=== PATIENT | male | born 1960 | race Caucasian/White ===

== ENCOUNTER 2018-10-21 04:59 | Inpatient (IN) | payer OTHER ==
[2018-10-21 05:54] LABS: ADD MAN DIFF? NO
[2018-10-21 06:05] LABS: WHITE BLOOD COUNT 6.2 10^3/ul (4.8-10.8)
[2018-10-21 06:05] LABS: ABNORMAL IP MESSAGE 1; BASOPHILS % 0.3 % (0.0-2.0); EOSINOPHILS # 0.2 10^3/ul (0.0-0.5); EOSINOPHILS % 2.4 % (0.0-7.0); HEMATOCRIT 27.6 % (42.0-52.0); HEMOGLOBIN 9.5 g/dl (14.0-18.0); LYMPHOCYTES # 2.6 10^3/ul (0.8-2.9); LYMPHOCYTES % 41.2 % (15.0-51.0); MEAN CORPUSCULAR HEMOGLOBIN 28.8 pg (29.0-33.0); MEAN CORPUSCULAR HGB CONC 34.4 g/dl (32.0-37.0); MEAN CORPUSCULAR VOLUME 83.6 fl (82.0-101.0); MEAN PLATELET VOLUME 9.8 fl (7.4-10.4); MONOCYTE # 0.7 10^3/ul (0.3-0.9); MONOCYTES % 11.1 % (0.0-11.0); NEUTROPHIL # 2.6 10^3/ul (1.6-7.5); NEUTROPHILS % 42.4 % (39.0-77.0); PLATELET COUNT 147 10^3/UL (140-415); POSITIVE DIFF @See below; RED CELL DISTRIBUTION WIDTH 14.3 % (11.5-14.5)
[2018-10-21 06:25] LABS: ALANINE AMINOTRANSFERASE 21 IU/L (13-69); ALBUMIN 2.4 g/dl (3.3-4.9); ALBUMIN/GLOBULIN RATIO 0.96; ALKALINE PHOSPHATASE 80 IU/L (42-121); ANION GAP 10 (5-13); ASPARTATE AMINO TRANSFERASE 24 IU/L (15-46); BILIRUBIN,INDIRECT 0.5 mg/dl (0-1.1); BILIRUBIN,TOTAL 0.5 mg/dl (0.2-1.3); BLOOD UREA NITROGEN 17 mg/dl (7-20); CALCIUM 7.8 mg/dl (8.4-10.2); CARBON DIOXIDE 21 mmol/L (21-31); CHLORIDE 107 mmol/L (97-110); CREATININE 0.75 mg/dl (0.61-1.24); Estimated GFR > 60 mL/min (>60); GLUCOSE 82 mg/dl (70-220); LIPASE 29 U/L (23-300); POTASSIUM 3.8 mmol/L (3.5-5.1); SODIUM 138 mmol/L (135-144); TOTAL PROTEIN 4.9 g/dl (6.1-8.1)
[2018-10-21 06:35] LABS: TROPONIN-I < 0.012 ng/ml (0.000-0.120)
[2018-10-21] MEDS: ONDANSETRON 4 MG INJ IV ×2 (09:37→15:07)
[2018-10-21] MEDS: morphine 2 MG INJ IV ×2 (09:37→20:17)
[2018-10-21 09:45] LABS: ADD UMIC YES; UR ASCORBIC ACID NEGATIVE (NEGATIVE); UR BILIRUBIN (Dip) NEGATIVE (NEGATIVE); UR BLOOD (Dip) NEGATIVE (NEGATIVE); UR CLARITY CLEAR (CLEAR); UR COLOR YELLOW (YELLOW); UR GLUCOSE (Dip) NEGATIVE (NEGATIVE); UR KETONES (Dip) 2+ mg/dL (NEGATIVE); UR LEUKOCYTE ESTERASE (Dip) NEGATIVE Leu/ul (NEGATIVE); UR MUCUS FEW /HPF (NONE SEEN); UR NITRITE (Dip) NEGATIVE (NEGATIVE); UR RBC 0 /HPF (0-5); UR SPECIFIC GRAVITY (Dip) 1.018 (1.003-1.030); UR TOTAL PROTEIN (Dip) 2+ mg/dl (NEGATIVE); UR UROBILINOGEN (Dip) NEGATIVE (NEGATIVE); UR WBC 1 /HPF (0-5)
[2018-10-21] MEDS: DEXTROSE 5%-0.45% NACL 1,000 ML IV ×2 (10:54→23:52)
[2018-10-21] MEDS: PANTOPRAZOLE 40 MG INJ IV (10:54)
[2018-10-21] MEDS ORDERED: NACL 0.9% 3 ML SYG IV (11:00)
[2018-10-21] MEDS ORDERED: HYDROCODONE/APAP (5/325) TAB PO (11:00)
[2018-10-21] MEDS ORDERED: ACETAMINOPHEN 325 MG TAB PO ×2 (11:00)
[2018-10-21] MEDS ORDERED: ONDANSETRON 4 MG INJ IV (11:00)
[2018-10-21] MEDS: SUCRALFATE (100 MG/ML) 10ML CUP PO ×3 (12:35→20:17)
[2018-10-21] MEDS: METOCLOPRAMIDE 10 MG INJ IV ×3 (12:35→23:11)
[2018-10-22] MEDS: morphine 2 MG INJ IV ×2 (00:50→06:53)
[2018-10-22] MEDS: DEXTROSE 5%-0.45% NACL 1,000 ML IV ×2 (01:52→17:36)
[2018-10-22] MEDS: HYDROmorphONE 1 MG/ML SYG IV ×4 (02:47→23:31)
[2018-10-22] MEDS: METOCLOPRAMIDE 10 MG INJ IV ×4 (05:34→23:31)
[2018-10-22] MEDS: PANTOPRAZOLE 40 MG INJ IV (05:34)
[2018-10-22 06:10] LABS: ABNORMAL IP MESSAGE 1; HEMATOCRIT 29.2 % (42.0-52.0); HEMOGLOBIN 10.1 g/dl (14.0-18.0); MEAN CORPUSCULAR HEMOGLOBIN 28.5 pg (29.0-33.0); MEAN CORPUSCULAR HGB CONC 34.6 g/dl (32.0-37.0); MEAN CORPUSCULAR VOLUME 82.5 fl (82.0-101.0); MEAN PLATELET VOLUME 10.1 fl (7.4-10.4); PLATELET COUNT 202 10^3/UL (140-415); POSITIVE DIFF @See below; RED BLOOD COUNT 3.54 10^6/ul (4.70-6.10); RED CELL DISTRIBUTION WIDTH 14.4 % (11.5-14.5)
[2018-10-22 06:10] LABS: WHITE BLOOD COUNT 8.8 10^3/ul (4.8-10.8)
[2018-10-22 06:30] LABS: ADD MAN DIFF? YES
[2018-10-22 06:40] LABS: ALANINE AMINOTRANSFERASE 19 IU/L (13-69); ALBUMIN 2.6 g/dl (3.3-4.9); ALBUMIN/GLOBULIN RATIO 0.96; ALKALINE PHOSPHATASE 81 IU/L (42-121); ANION GAP 9 (5-13); ASPARTATE AMINO TRANSFERASE 25 IU/L (15-46); BILIRUBIN,INDIRECT 0.5 mg/dl (0-1.1); BILIRUBIN,TOTAL 0.5 mg/dl (0.2-1.3); BLOOD UREA NITROGEN 8 mg/dl (7-20); CALCIUM 7.8 mg/dl (8.4-10.2); CARBON DIOXIDE 24 mmol/L (21-31); CHLORIDE 103 mmol/L (97-110); CHOL/HDL RATIO 9.5 RATIO; CHOLESTEROL 181 mg/dl (100-200); CREATININE 0.54 mg/dl (0.61-1.24); Estimated GFR > 60 mL/min (>60); GLUCOSE 113 mg/dl (70-220); HDL CHOLESTEROL 19 mg/dl (30-78); LDL CHOLESTEROL,CALCULATED 132 mg/dl; MAGNESIUM 1.8 mg/dl (1.7-2.5); POTASSIUM 3.4 mmol/L (3.5-5.1); SODIUM 136 mmol/L (135-144); TOTAL PROTEIN 5.3 g/dl (6.1-8.1); TRIGLYCERIDES 149 mg/dl (0-149)
[2018-10-22 07:02] LABS: HEMOGLOBIN A1C 5.2 % (0-5.9)
[2018-10-22 07:45] LABS: ANISOCYTOSIS 1+ (0-0); BAND NEUTROPHILS #M 0.6 10^3/ul (0.0-0.6); BAND NEUTROPHILS % (M) 7 % (0-4); EOSINOPHILS % (M) 2 % (0-7); LYMPHOCYTES #M 1.8 10^3/ul (0.8-2.9); LYMPHOCYTES % (M) 21 % (15-51); METAMYELOCYTES %M 1 % (0-0); MONOCYTE #M 0.3 10^3/ul (0.3-0.9); MONOCYTES % (M) 4 % (0-11); MYELOCYTES #M 0.1 10^3/ul (0.0-0.0); MYELOCYTES % (M) 2 % (0-0); PLATELET ESTIMATE NORMAL; POIKILOCYTOSIS 1+ (0-0); REACTIVE LYMPHOCYTES #M 1.5 10^3/ul (0.0-0.0); REACTIVE LYMPHOCYTES% (M) 18 % (0-0); SEGMENTED NEUTROPHILS (M) % 45 % (39-77); SMUDGE%M 15 % (0-0)
[2018-10-22] MEDS: SUCRALFATE (100 MG/ML) 10ML CUP PO ×4 (08:49→20:23)
[2018-10-22] MEDS: ONDANSETRON 4 MG INJ IV (08:57)
[2018-10-22] MEDS: ENOXAPARIN 60 MG/0.6 ML SYG SC ×2 (09:30→20:18)
[2018-10-22] MEDS: POTASSIUM CHLORIDE 100 ML IVPB ×2 (11:28→14:22)
[2018-10-22] MEDS: DEXAMETHASONE 4 MG/ML 1 ML INJ IV ×3 (11:28→23:31)
[2018-10-22] MEDS: DOCUSATE SODIUM 100 MG CAP PO (20:17)
[2018-10-23] MEDS: HYDROmorphONE 1 MG/ML SYG IV ×5 (04:21→23:46)
[2018-10-23] MEDS: ONDANSETRON 4 MG INJ IV ×3 (04:21→21:10)
[2018-10-23] MEDS: METOCLOPRAMIDE 10 MG INJ IV ×4 (05:21→23:46)
[2018-10-23] MEDS: PANTOPRAZOLE 40 MG INJ IV (05:21)
[2018-10-23] MEDS: DEXAMETHASONE 4 MG/ML 1 ML INJ IV ×4 (05:21→23:47)
[2018-10-23 06:17] LABS: WHITE BLOOD COUNT 11.5 10^3/ul (4.8-10.8)
[2018-10-23 06:17] LABS: ABNORMAL IP MESSAGE 1; HEMOGLOBIN 10.8 g/dl (14.0-18.0); MEAN CORPUSCULAR HEMOGLOBIN 28.7 pg (29.0-33.0); MEAN CORPUSCULAR HGB CONC 34.8 g/dl (32.0-37.0); MEAN CORPUSCULAR VOLUME 82.4 fl (82.0-101.0); MEAN PLATELET VOLUME 9.6 fl (7.4-10.4); PLATELET COUNT 240 10^3/UL (140-415); POSITIVE DIFF @See below; RED BLOOD COUNT 3.76 10^6/ul (4.70-6.10); RED CELL DISTRIBUTION WIDTH 14.5 % (11.5-14.5)
[2018-10-23 06:24] LABS: ADD MAN DIFF? YES
[2018-10-23 06:46] LABS: ANION GAP 9 (5-13); BLOOD UREA NITROGEN 7 mg/dl (7-20); CALCIUM 7.9 mg/dl (8.4-10.2); CARBON DIOXIDE 22 mmol/L (21-31); CHLORIDE 103 mmol/L (97-110); CREATININE 0.64 mg/dl (0.61-1.24); Estimated GFR > 60 mL/min (>60); GLUCOSE 200 mg/dl (70-220); MAGNESIUM 1.7 mg/dl (1.7-2.5); POTASSIUM 3.9 mmol/L (3.5-5.1); SODIUM 134 mmol/L (135-144)
[2018-10-23] MEDS: DEXTROSE 5%-0.45% NACL 1,000 ML IV ×2 (06:47→21:08)
[2018-10-23 07:20] LABS: PHOSPHORUS 3.4 mg/dl (2.5-4.9)
[2018-10-23] MEDS: ENOXAPARIN 60 MG/0.6 ML SYG SC ×2 (08:07→21:12)
[2018-10-23 09:00] LABS: BAND NEUTROPHILS #M 0.8 10^3/ul (0.0-0.6); BAND NEUTROPHILS % (M) 7 % (0-4); LYMPHOCYTES # 1.6 10^3/ul (0.8-2.9); LYMPHOCYTES #M 1.6 10^3/ul (0.8-2.9); LYMPHOCYTES % (M) 14 % (15-51); METAMYELOCYTES #M 0.5 10^3/ul (0.0-0.0); METAMYELOCYTES %M 5 % (0-0); MONOCYTE # 0.8 10^3/ul (0.3-0.9); MONOCYTE #M 0.8 10^3/ul (0.3-0.9); MONOCYTES % (M) 7 % (0-11); REACTIVE LYMPHOCYTES #M 0.8 10^3/ul (0.0-0.0); REACTIVE LYMPHOCYTES% (M) 7 % (0-0); SEGMENTED NEUTROPHILS (M) % 60 % (39-77)
[2018-10-23] MEDS: SUCRALFATE (100 MG/ML) 10ML CUP PO ×4 (09:00→21:10)
[2018-10-23] MEDS: DOCUSATE SODIUM 100 MG CAP PO ×2 (09:00→21:10)
[2018-10-23 17:39] LABS: ADD UMIC YES; UR ASCORBIC ACID NEGATIVE (NEGATIVE); UR BACTERIA FEW /HPF (NONE SEEN); UR BILIRUBIN (Dip) NEGATIVE (NEGATIVE); UR BLOOD (Dip) NEGATIVE (NEGATIVE); UR CLARITY CLEAR (CLEAR); UR COLOR YELLOW (YELLOW); UR GLUCOSE (Dip) NEGATIVE (NEGATIVE); UR KETONES (Dip) 1+ mg/dL (NEGATIVE); UR LEUKOCYTE ESTERASE (Dip) NEGATIVE Leu/ul (NEGATIVE); UR MUCUS FEW /HPF (NONE SEEN); UR NITRITE (Dip) NEGATIVE (NEGATIVE); UR RBC 0 /HPF (0-5); UR SPECIFIC GRAVITY (Dip) 1.016 (1.003-1.030); UR TOTAL PROTEIN (Dip) 2+ mg/dl (NEGATIVE); UR UROBILINOGEN (Dip) NEGATIVE (NEGATIVE); UR WBC 2 /HPF (0-5)
[2018-10-23] MEDS ORDERED: PANTOPRAZOLE 40 MG INJ IV (18:00)
[2018-10-23] MEDS: FAMOTIDINE 20 MG INJ IV (21:10)
[2018-10-24] MEDS: HYDROmorphONE 1 MG/ML SYG IV ×5 (04:01→22:16)
[2018-10-24] MEDS: ONDANSETRON 4 MG INJ IV ×2 (04:06→12:34)
[2018-10-24] MEDS: METOCLOPRAMIDE 10 MG INJ IV ×3 (05:50→17:51)
[2018-10-24] MEDS: DEXAMETHASONE 4 MG/ML 1 ML INJ IV ×3 (05:50→17:51)
[2018-10-24 07:20] LABS: ABNORMAL IP MESSAGE 1; HEMATOCRIT 34.5 % (42.0-52.0); HEMOGLOBIN 11.9 g/dl (14.0-18.0); MEAN CORPUSCULAR HGB CONC 34.5 g/dl (32.0-37.0); MEAN CORPUSCULAR VOLUME 81.2 fl (82.0-101.0); MEAN PLATELET VOLUME 9.9 fl (7.4-10.4); PLATELET COUNT 324 10^3/UL (140-415); POSITIVE DIFF @See below; RED BLOOD COUNT 4.25 10^6/ul (4.70-6.10); RED CELL DISTRIBUTION WIDTH 14.6 % (11.5-14.5)
[2018-10-24 07:20] LABS: WHITE BLOOD COUNT 18.1 10^3/ul (4.8-10.8)
[2018-10-24 07:24] LABS: ADD MAN DIFF? YES
[2018-10-24 07:39] LABS: ANION GAP 9 (5-13); BLOOD UREA NITROGEN 14 mg/dl (7-20); CALCIUM 8.2 mg/dl (8.4-10.2); CARBON DIOXIDE 20 mmol/L (21-31); CHLORIDE 105 mmol/L (97-110); CREATININE 1.09 mg/dl (0.61-1.24); Estimated GFR > 60 mL/min (>60); GLUCOSE 118 mg/dl (70-220); MAGNESIUM 1.9 mg/dl (1.7-2.5); PHOSPHORUS 3.6 mg/dl (2.5-4.9); POTASSIUM 4.2 mmol/L (3.5-5.1); SODIUM 134 mmol/L (135-144)
[2018-10-24] MEDS: FAMOTIDINE 20 MG INJ IV ×2 (07:52→21:07)
[2018-10-24] MEDS: DOCUSATE SODIUM 100 MG CAP PO ×2 (09:00→21:07)
[2018-10-24] MEDS: SUCRALFATE (100 MG/ML) 10ML CUP PO ×5 (09:00→21:07)
[2018-10-24 09:19] LABS: ANISOCYTOSIS 1+ (0-0); BAND NEUTROPHILS #M 1.8 10^3/ul (0.0-0.6); BAND NEUTROPHILS % (M) 10 % (0-4); BURR CELLS 1+ (0-0); ERYTHROBLAST% (NRBC) (M) 1 % (0-0); LYMPHOCYTES #M 1.8 10^3/ul (0.8-2.9); LYMPHOCYTES % (M) 10 % (15-51); METAMYELOCYTES #M 0.1 10^3/ul (0.0-0.0); METAMYELOCYTES %M 1 % (0-0); MICROCYTOSIS 1+ (0-0); MONOCYTES % (M) 6 % (0-11); MYELOCYTES #M 0.1 10^3/ul (0.0-0.0); MYELOCYTES % (M) 1 % (0-0); OVALOCYTES 1+ (0-0); PLATELET ESTIMATE NORMAL; POIKILOCYTOSIS 3+ (0-0); POLYCHROMASIA 3+ (0-0); REACTIVE LYMPHOCYTES% (M) 6 % (0-0); SEG NEUT #M 12.3 10^3/ul (1.6-7.5); SEGMENTED NEUTROPHILS (M) % 66 % (39-77); SMUDGE%M 13 % (0-0)
[2018-10-24] MEDS: ENOXAPARIN 60 MG/0.6 ML SYG SC ×2 (10:30→21:09)
[2018-10-24] MEDS: DEXTROSE 5%-0.45% NACL 1,000 ML IV ×2 (10:41→12:30)
[2018-10-24 18:32] LABS: ADD UMIC YES; UR ASCORBIC ACID NEGATIVE (NEGATIVE); UR BACTERIA FEW /HPF (NONE SEEN); UR BILIRUBIN (Dip) 1+ mg/dL (NEGATIVE); UR BLOOD (Dip) 1+ mg/dL (NEGATIVE); UR CLARITY CLOUDY (CLEAR); UR COLOR AMBER (YELLOW); UR GLUCOSE (Dip) NEGATIVE (NEGATIVE); UR KETONES (Dip) NEGATIVE (NEGATIVE); UR LEUKOCYTE ESTERASE (Dip) NEGATIVE Leu/ul (NEGATIVE); UR MUCUS MANY /HPF (NONE SEEN); UR NITRITE (Dip) NEGATIVE (NEGATIVE); UR RBC 3 /HPF (0-5); UR SPECIFIC GRAVITY (Dip) 1.027 (1.003-1.030); UR TOTAL PROTEIN (Dip) 2+ mg/dl (NEGATIVE); UR UROBILINOGEN (Dip) NEGATIVE (NEGATIVE); UR WBC 3 /HPF (0-5)
[2018-10-24] MEDS: SOD CHLORIDE 0.9% 1,000 ML IV (18:49)
[2018-10-25] MEDS: METOCLOPRAMIDE 10 MG INJ IV ×5 (00:23→23:29)
[2018-10-25] MEDS: DEXAMETHASONE 4 MG/ML 1 ML INJ IV ×5 (00:23→23:29)
[2018-10-25] MEDS: HYDROmorphONE 1 MG/ML SYG IV ×4 (04:46→21:19)
[2018-10-25] MEDS: SOD CHLORIDE 0.9% 1,000 ML IV ×2 (05:39→18:07)
[2018-10-25 05:57] LABS: ADD MAN DIFF? NO
[2018-10-25 06:00] LABS: WHITE BLOOD COUNT 18.4 10^3/ul (4.8-10.8)
[2018-10-25 06:00] LABS: HEMATOCRIT 32.1 % (42.0-52.0); HEMOGLOBIN 10.9 g/dl (14.0-18.0); MEAN CORPUSCULAR VOLUME 82.3 fl (82.0-101.0)
[2018-10-25 06:01] LABS: ABNORMAL IP MESSAGE 1; BASOPHILS % 0.1 % (0.0-2.0); EOSINOPHILS % 0.1 % (0.0-7.0); LYMPHOCYTES # 4.6 10^3/ul (0.8-2.9); LYMPHOCYTES % 24.8 % (15.0-51.0); MEAN CORPUSCULAR HEMOGLOBIN 27.9 pg (29.0-33.0); MEAN PLATELET VOLUME 9.7 fl (7.4-10.4); MONOCYTE # 1.3 10^3/ul (0.3-0.9); MONOCYTES % 7.3 % (0.0-11.0); NEUTROPHIL # 10.8 10^3/ul (1.6-7.5); NEUTROPHILS % 58.5 % (39.0-77.0); PLATELET COUNT 282 10^3/UL (140-415); POSITIVE DIFF @See below; RED CELL DISTRIBUTION WIDTH 14.6 % (11.5-14.5)
[2018-10-25 06:41] LABS: ANION GAP 8 (5-13); BLOOD UREA NITROGEN 21 mg/dl (7-20); CALCIUM 8.1 mg/dl (8.4-10.2); CARBON DIOXIDE 22 mmol/L (21-31); CHLORIDE 104 mmol/L (97-110); CREATININE 1.43 mg/dl (0.61-1.24); Estimated GFR 50 mL/min (>60); GLUCOSE 95 mg/dl (70-220); MAGNESIUM 1.9 mg/dl (1.7-2.5); PHOSPHORUS 3.2 mg/dl (2.5-4.9); SODIUM 134 mmol/L (135-144)
[2018-10-25 07:14] LABS: BAND NEUTROPHILS #M 1.1 10^3/ul (0.0-0.6); BAND NEUTROPHILS % (M) 6 % (0-4); BASOPHIL #M 0.1 10^3/ul (0.0-0.0); BASOPHILS % (M) 1 % (0-2); BURR CELLS 1+ (0-0); LYMPHOCYTES #M 0.7 10^3/ul (0.8-2.9); LYMPHOCYTES % (M) 4 % (15-51); METAMYELOCYTES #M 0.1 10^3/ul (0.0-0.0); METAMYELOCYTES %M 1 % (0-0); MONOCYTE #M 1.1 10^3/ul (0.3-0.9); MONOCYTES % (M) 6 % (0-11); PLATELET ESTIMATE NORMAL; POIKILOCYTOSIS 1+ (0-0); PROMYELOCYTES #M 0.3 10^3/ul (0-0); PROMYELOCYTES % (M) 2 % (0-0); REACTIVE LYMPHOCYTES #M 0.3 10^3/ul (0.0-0.0); REACTIVE LYMPHOCYTES% (M) 2 % (0-0); SEG NEUT #M 14.6 10^3/ul (1.6-7.5); SEGMENTED NEUTROPHILS (M) % 78 % (39-77); SMUDGE%M 12 % (0-0)
[2018-10-25] MEDS: SUCRALFATE (100 MG/ML) 10ML CUP PO ×4 (09:00→21:24)
[2018-10-25] MEDS: DOCUSATE SODIUM 100 MG CAP PO ×2 (09:07→21:19)
[2018-10-25] MEDS: FAMOTIDINE 20 MG INJ IV ×2 (09:07→21:19)
[2018-10-25] MEDS: ENOXAPARIN 60 MG/0.6 ML SYG SC ×2 (09:08→21:21)
[2018-10-25] MEDS: FUROSEMIDE 40 MG INJ IV (13:16)
[2018-10-25] MEDS: PIPER-TAZO 3.375 GM IV (PMX) 100 ML IVPB ×3 (13:16→23:29)
[2018-10-25 17:17] LABS: SODIUM,URINE RANDOM 130 mmol/L (30-90)
[2018-10-25 17:17] LABS: CREATININE,URINE RANDOM 30.51 mg/dl (20-370)
[2018-10-25 17:25] LABS: ADD UMIC YES; UR ASCORBIC ACID NEGATIVE (NEGATIVE); UR BACTERIA MANY /HPF (NONE SEEN); UR BILIRUBIN (Dip) NEGATIVE (NEGATIVE); UR BLOOD (Dip) 1+ mg/dL (NEGATIVE); UR CLARITY SLIGHTLY CLOUDY (CLEAR); UR COLOR YELLOW (YELLOW); UR GLUCOSE (Dip) NEGATIVE (NEGATIVE); UR KETONES (Dip) NEGATIVE (NEGATIVE); UR LEUKOCYTE ESTERASE (Dip) NEGATIVE Leu/ul (NEGATIVE); UR NITRITE (Dip) NEGATIVE (NEGATIVE); UR RBC 1 /HPF (0-5); UR SPECIFIC GRAVITY (Dip) 1.009 (1.003-1.030); UR TOTAL PROTEIN (Dip) NEGATIVE (NEGATIVE); UR UROBILINOGEN (Dip) NEGATIVE (NEGATIVE); UR WBC 4 /HPF (0-5)
[2018-10-25 19:37] LABS: ALANINE AMINOTRANSFERASE 27 IU/L (13-69); ALBUMIN 2.7 g/dl (3.3-4.9); ALBUMIN/GLOBULIN RATIO 1.03; ALKALINE PHOSPHATASE 79 IU/L (42-121); ANION GAP 10 (5-13); ASPARTATE AMINO TRANSFERASE 48 IU/L (15-46); BILIRUBIN,INDIRECT 0.6 mg/dl (0-1.1); BILIRUBIN,TOTAL 0.6 mg/dl (0.2-1.3); BLOOD UREA NITROGEN 25 mg/dl (7-20); CALCIUM 7.9 mg/dl (8.4-10.2); CARBON DIOXIDE 18 mmol/L (21-31); CHLORIDE 106 mmol/L (97-110); CREATININE 1.51 mg/dl (0.61-1.24); Estimated GFR 47 mL/min (>60); GLUCOSE 94 mg/dl (70-220); PHOSPHORUS 3.5 mg/dl (2.5-4.9); SODIUM 134 mmol/L (135-144); TOTAL PROTEIN 5.3 g/dl (6.1-8.1); TRIGLYCERIDES 317 mg/dl (0-149)
[2018-10-25 19:44] LABS: PREALBUMIN 18.8 mg/dl (17.6-36.0)
[2018-10-26] MEDS: HYDROmorphONE 1 MG/ML SYG IV ×3 (04:08→20:49)
[2018-10-26] MEDS: METOCLOPRAMIDE 10 MG INJ IV ×4 (05:16→23:07)
[2018-10-26] MEDS: PIPER-TAZO 3.375 GM IV (PMX) 100 ML IVPB ×4 (05:16→23:08)
[2018-10-26] MEDS: SOD CHLORIDE 0.9% 1,000 ML IV (05:16)
[2018-10-26] MEDS: DEXAMETHASONE 4 MG/ML 1 ML INJ IV ×4 (05:16→23:07)
[2018-10-26 06:26] LABS: ADD MAN DIFF? NO
[2018-10-26 06:47] LABS: WHITE BLOOD COUNT 19.5 10^3/ul (4.8-10.8)
[2018-10-26 06:47] LABS: ABNORMAL IP MESSAGE 1; BASOPHILS % 0.1 % (0.0-2.0); HEMATOCRIT 28.7 % (42.0-52.0); LYMPHOCYTES # 5.6 10^3/ul (0.8-2.9); LYMPHOCYTES % 28.4 % (15.0-51.0); MEAN CORPUSCULAR HEMOGLOBIN 28.3 pg (29.0-33.0); MEAN CORPUSCULAR HGB CONC 34.8 g/dl (32.0-37.0); MEAN CORPUSCULAR VOLUME 81.3 fl (82.0-101.0); MONOCYTE # 1.3 10^3/ul (0.3-0.9); MONOCYTES % 6.7 % (0.0-11.0); NEUTROPHIL # 10.8 10^3/ul (1.6-7.5); NEUTROPHILS % 55.2 % (39.0-77.0); PLATELET COUNT 239 10^3/UL (140-415); POSITIVE DIFF @See below; RED BLOOD COUNT 3.53 10^6/ul (4.70-6.10); RED CELL DISTRIBUTION WIDTH 14.7 % (11.5-14.5)
[2018-10-26 07:18] LABS: ANION GAP 10 (5-13); Estimated GFR 42 mL/min (>60)
[2018-10-26 07:24] LABS: TRIGLYCERIDES 242 mg/dl (0-149)
[2018-10-26 07:27] LABS: BLOOD UREA NITROGEN 25 mg/dl (7-20); CALCIUM 7.8 mg/dl (8.4-10.2); CARBON DIOXIDE 20 mmol/L (21-31); CHLORIDE 104 mmol/L (97-110); CREATININE 1.68 mg/dl (0.61-1.24); GLUCOSE 87 mg/dl (70-220); PHOSPHORUS 3.6 mg/dl (2.5-4.9); POTASSIUM 3.7 mmol/L (3.5-5.1); SODIUM 134 mmol/L (135-144)
[2018-10-26] MEDS: DOCUSATE SODIUM 100 MG CAP PO ×2 (08:35→20:47)
[2018-10-26] MEDS: SUCRALFATE (100 MG/ML) 10ML CUP PO ×4 (08:35→20:47)
[2018-10-26] MEDS: ENOXAPARIN 60 MG/0.6 ML SYG SC ×2 (08:36→20:49)
[2018-10-26] MEDS: FAMOTIDINE 20 MG INJ IV (08:43)
[2018-10-26 09:23] LABS: ANISOCYTOSIS 1+ (0-0); BAND NEUTROPHILS #M 3.3 10^3/ul (0.0-0.6); BAND NEUTROPHILS % (M) 17 % (0-4); BURR CELLS 3+ (0-0); LYMPHOCYTES #M 1.1 10^3/ul (0.8-2.9); LYMPHOCYTES % (M) 6 % (15-51); MICROCYTOSIS 1+ (0-0); MONOCYTE #M 0.7 10^3/ul (0.3-0.9); MONOCYTES % (M) 4 % (0-11); MYELOCYTES #M 0.3 10^3/ul (0.0-0.0); MYELOCYTES % (M) 2 % (0-0); OVALOCYTES 1+ (0-0); PLATELET ESTIMATE NORMAL; POIKILOCYTOSIS 3+ (0-0); REACTIVE LYMPHOCYTES #M 1.5 10^3/ul (0.0-0.0); REACTIVE LYMPHOCYTES% (M) 8 % (0-0); SEG NEUT #M 12.9 10^3/ul (1.6-7.5); SEGMENTED NEUTROPHILS (M) % 63 % (39-77); SMUDGE%M 16 % (0-0)
[2018-10-26 09:34] LABS: PREALBUMIN 16.7 mg/dl (17.6-36.0)
[2018-10-26] MEDS ORDERED: FLUCONAZOLE 100 MG TAB PO (11:00)
[2018-10-26] MEDS ORDERED: DIPHENHYDRAMINE 50 MG INJ IV (11:30)
[2018-10-26] MEDS ORDERED: EPHEDrine 25 MG/5 ML SYG IV (11:30)
[2018-10-26] MEDS ORDERED: hydrALAzine 20 MG INJ IV (11:30)
[2018-10-26] MEDS ORDERED: FENTAnyl 50 MCG/ML VIAL IV ×2 (11:30)
[2018-10-26] MEDS ORDERED: ONDANSETRON 4 MG INJ IV (11:30)
[2018-10-26] MEDS ORDERED: LABETALOL HCL 20MG INJ IV (11:30)
[2018-10-26] MEDS: TPN 1,000 ML IV (14:49)
[2018-10-26] MEDS: ACALABRUTINIB 100 MG PO ×2 (15:42→23:14)
[2018-10-26] MEDS: FLUCONAZOLE 100 MG/50 ML (PMX) 50 ML IVPB (15:46)
[2018-10-26] MEDS: ACCU-CHEK XX ×2 (17:00→20:49)
[2018-10-26] MEDS: PANTOPRAZOLE 40 MG INJ IV (17:44)
[2018-10-26] MEDS ORDERED: PANTOPRAZOLE (EC) 40 MG TAB PO (18:00)
[2018-10-27] MEDS: ACCU-CHEK XX ×6 (01:00→20:59)
[2018-10-27] MEDS: HYDROmorphONE 1 MG/ML SYG IV ×3 (03:50→20:47)
[2018-10-27] MEDS: TPN 1,000 ML IV ×3 (04:40→21:20)
[2018-10-27] MEDS: METOCLOPRAMIDE 10 MG INJ IV ×3 (05:30→17:50)
[2018-10-27] MEDS: PIPER-TAZO 3.375 GM IV (PMX) 100 ML IVPB ×3 (05:30→17:50)
[2018-10-27] MEDS: DEXAMETHASONE 4 MG/ML 1 ML INJ IV ×3 (05:30→17:50)
[2018-10-27] MEDS: PANTOPRAZOLE 40 MG INJ IV ×2 (05:37→17:50)
[2018-10-27] MEDS: DOCUSATE SODIUM 100 MG CAP PO ×2 (08:15→20:51)
[2018-10-27] MEDS: SUCRALFATE (100 MG/ML) 10ML CUP PO ×4 (08:15→20:51)
[2018-10-27] MEDS: ENOXAPARIN 100 MG/ML SYG SC (08:19)
[2018-10-27] MEDS: ACALABRUTINIB 100 MG PO ×2 (08:20→20:58)
[2018-10-27 09:18] LABS: URIC ACID 6.2 mg/dl (3.1-7.9)
[2018-10-27 09:18] LABS: PHOSPHORUS 2.9 mg/dl (2.5-4.9)
[2018-10-27 09:47] LABS: ANION GAP 5 (5-13); BLOOD UREA NITROGEN 36 mg/dl (7-20); CALCIUM 7.9 mg/dl (8.4-10.2); CARBON DIOXIDE 23 mmol/L (21-31); CHLORIDE 105 mmol/L (97-110); CREATININE 1.26 mg/dl (0.61-1.24); Estimated GFR 58 mL/min (>60); GLUCOSE 139 mg/dl (70-220); PHOSPHORUS 2.9 mg/dl (2.5-4.9); POTASSIUM 3.9 mmol/L (3.5-5.1); SODIUM 133 mmol/L (135-144)
[2018-10-27 09:57] LABS: LACTATE DEHYDROGENASE 5821 IU/L (313-618)
[2018-10-27] MEDS: FLUCONAZOLE 100 MG/50 ML (PMX) 50 ML IVPB (15:07)
[2018-10-27] MEDS: ONDANSETRON 4 MG INJ IV (20:51)
[2018-10-27] MEDS ORDERED: DEXTROSE 50% 50 ML SYRINGE IV ×2 (23:30)
[2018-10-27] MEDS ORDERED: GLUCAGON 1 MG INJ IM (23:30)
[2018-10-27] MEDS ORDERED: GLUCOSE GEL 15 GRAM TUBE PO ×2 (23:30)
[2018-10-27] MEDS ORDERED: GLUCOSE GEL 15 GRAM TUBE BUCCAL (23:30)
[2018-10-28] MEDS: PIPER-TAZO 3.375 GM IV (PMX) 100 ML IVPB ×4 (00:28→17:08)
[2018-10-28] MEDS: METOCLOPRAMIDE 10 MG INJ IV ×5 (00:29→23:37)
[2018-10-28] MEDS: ACCU-CHEK XX ×6 (00:29→22:03)
[2018-10-28] MEDS: DEXAMETHASONE 4 MG/ML 1 ML INJ IV ×5 (00:29→23:37)
[2018-10-28] MEDS: INSULIN ASPART [NOVOLOG] 3 ML PEN SC ×6 (00:29→22:03)
[2018-10-28] MEDS: HYDROmorphONE 1 MG/ML SYG IV ×4 (03:37→23:38)
[2018-10-28] MEDS: PANTOPRAZOLE 40 MG INJ IV ×2 (05:10→17:09)
[2018-10-28] MEDS: TPN 1,000 ML IV ×2 (05:11→21:58)
[2018-10-28 06:28] LABS: WHITE BLOOD COUNT 15.8 10^3/ul (4.8-10.8)
[2018-10-28 06:28] LABS: ABNORMAL IP MESSAGE 1; HEMATOCRIT 21.9 % (42.0-52.0); HEMOGLOBIN 7.5 g/dl (14.0-18.0); MEAN CORPUSCULAR HEMOGLOBIN 28.3 pg (29.0-33.0); MEAN CORPUSCULAR HGB CONC 34.2 g/dl (32.0-37.0); MEAN CORPUSCULAR VOLUME 82.6 fl (82.0-101.0); MEAN PLATELET VOLUME 9.9 fl (7.4-10.4); PLATELET COUNT 156 10^3/UL (140-415); POSITIVE DIFF @See below; RED BLOOD COUNT 2.65 10^6/ul (4.70-6.10); RED CELL DISTRIBUTION WIDTH 14.7 % (11.5-14.5)
[2018-10-28 06:30] LABS: ADD MAN DIFF? YES
[2018-10-28 06:58] LABS: ANION GAP 3 (5-13); BLOOD UREA NITROGEN 40 mg/dl (7-20); CALCIUM 7.4 mg/dl (8.4-10.2); CARBON DIOXIDE 25 mmol/L (21-31); CHLORIDE 106 mmol/L (97-110); CREATININE 1.04 mg/dl (0.61-1.24); Estimated GFR > 60 mL/min (>60); GLUCOSE 125 mg/dl (70-220); PHOSPHORUS 2.3 mg/dl (2.5-4.9); POTASSIUM 3.8 mmol/L (3.5-5.1); SODIUM 134 mmol/L (135-144)
[2018-10-28] MEDS: ACALABRUTINIB 100 MG PO ×2 (08:32→22:00)
[2018-10-28] MEDS: ENOXAPARIN 100 MG/ML SYG SC (08:33)
[2018-10-28] MEDS: DOCUSATE SODIUM 100 MG CAP PO ×2 (08:33→21:58)
[2018-10-28] MEDS: SUCRALFATE (100 MG/ML) 10ML CUP PO ×4 (08:33→21:58)
[2018-10-28 10:23] LABS: ANISOCYTOSIS 1+ (0-0); BAND NEUTROPHILS #M 0.7 10^3/ul (0.0-0.6); BAND NEUTROPHILS % (M) 5 % (0-4); BURR CELLS 2+ (0-0); MICROCYTOSIS 1+ (0-0); MYELOCYTES #M 0.7 10^3/ul (0.0-0.0); MYELOCYTES % (M) 5 % (0-0); OVALOCYTES 1+ (0-0); PLATELET ESTIMATE NORMAL; POIKILOCYTOSIS 3+ (0-0); POLYCHROMASIA 1+ (0-0); RBC MORPHOLOGY COMMENT @See below; WBC MORPHOLOGY COMMENT @See below
[2018-10-28 14:27] LABS: CREATININE, RANDOM URINE 38 mg/dL (20-320); MICROALBUMIN 3.7 mg/dL; MICROALBUMIN/CREATININE RATIO 97 (<30)
[2018-10-28] MEDS: FLUCONAZOLE 100 MG/50 ML (PMX) 50 ML IVPB (15:31)
[2018-10-28 16:08] LABS: SEG NEUT #M 8.3 10^3/ul (1.6-7.5); SEGMENTED NEUTROPHILS (M) % 52 % (39-77)
[2018-10-28 16:09] LABS: LYMPHOCYTES #M 2.8 10^3/ul (0.8-2.9); LYMPHOCYTES % (M) 18 % (15-51)
[2018-10-28 16:10] LABS: EOSINOPHILS % (M) 1 % (0.0-7.0); METAMYELOCYTES #M 0.9 10^3/ul (0.0-0.0); METAMYELOCYTES %M 6 % (0-0); MONOCYTE #M 0.1 10^3/ul (0.3-0.9); MONOCYTES % (M) 1 % (0-11)
[2018-10-28 16:14] LABS: PATH REVIEW Y
[2018-10-28] MEDS: ONDANSETRON 4 MG INJ IV (23:13)
[2018-10-29] MEDS: INSULIN ASPART [NOVOLOG] 3 ML PEN SC ×4 (00:45→17:36)
[2018-10-29] MEDS: ACCU-CHEK XX ×4 (00:48→17:37)
[2018-10-29] MEDS: HYDROmorphONE 1 MG/ML SYG IV ×4 (04:26→23:22)
[2018-10-29] MEDS: DEXAMETHASONE 4 MG/ML 1 ML INJ IV ×3 (05:27→17:27)
[2018-10-29] MEDS: PANTOPRAZOLE 40 MG INJ IV ×2 (05:27→17:27)
[2018-10-29] MEDS: METOCLOPRAMIDE 10 MG INJ IV ×3 (05:27→17:27)
[2018-10-29 06:22] LABS: ADD MAN DIFF? NO
[2018-10-29 06:27] LABS: ABNORMAL IP MESSAGE 1; BASOPHILS % 0.1 % (0.0-2.0); EOSINOPHILS % 0.1 % (0.0-7.0); HEMOGLOBIN 7.3 g/dl (14.0-18.0); LYMPHOCYTES # 5.7 10^3/ul (0.8-2.9); LYMPHOCYTES % 36.1 % (15.0-51.0); MEAN CORPUSCULAR HEMOGLOBIN 28.7 pg (29.0-33.0); MEAN CORPUSCULAR HGB CONC 34.8 g/dl (32.0-37.0); MEAN CORPUSCULAR VOLUME 82.7 fl (82.0-101.0); MEAN PLATELET VOLUME 9.9 fl (7.4-10.4); MONOCYTE # 1.4 10^3/ul (0.3-0.9); NEUTROPHIL # 7.1 10^3/ul (1.6-7.5); NEUTROPHILS % 44.8 % (39.0-77.0); PLATELET COUNT 153 10^3/UL (140-415); POSITIVE DIFF @See below; RED BLOOD COUNT 2.54 10^6/ul (4.70-6.10)
[2018-10-29 06:27] LABS: WHITE BLOOD COUNT 15.8 10^3/ul (4.8-10.8)
[2018-10-29 06:52] LABS: ANION GAP 4 (5-13); BLOOD UREA NITROGEN 33 mg/dl (7-20); CALCIUM 7.5 mg/dl (8.4-10.2); CARBON DIOXIDE 25 mmol/L (21-31); CHLORIDE 106 mmol/L (97-110); CREATININE 0.71 mg/dl (0.61-1.24); Estimated GFR > 60 mL/min (>60); GLUCOSE 106 mg/dl (70-220); MAGNESIUM 1.7 mg/dl (1.7-2.5); PHOSPHORUS 2.6 mg/dl (2.5-4.9); POTASSIUM 3.6 mmol/L (3.5-5.1); SODIUM 135 mmol/L (135-144)
[2018-10-29 06:59] LABS: ALANINE AMINOTRANSFERASE 23 IU/L (13-69); ALBUMIN 2.2 g/dl (3.3-4.9); ALKALINE PHOSPHATASE 44 IU/L (42-121); ASPARTATE AMINO TRANSFERASE 39 IU/L (15-46); BILIRUBIN,INDIRECT 0.4 mg/dl (0-1.1); BILIRUBIN,TOTAL 0.4 mg/dl (0.2-1.3); TOTAL PROTEIN 4.4 g/dl (6.1-8.1)
[2018-10-29 08:34] LABS: ANISOCYTOSIS 1+ (0-0); BAND NEUTROPHILS #M 0.3 10^3/ul (0.0-0.6); BAND NEUTROPHILS % (M) 2 % (0-4); LYMPHOCYTES #M 1.7 10^3/ul (0.8-2.9); LYMPHOCYTES % (M) 11 % (15-51); METAMYELOCYTES #M 0.1 10^3/ul (0.0-0.0); METAMYELOCYTES %M 1 % (0-0); MONOCYTE #M 0.9 10^3/ul (0.3-0.9); MONOCYTES % (M) 6 % (0-11); MYELOCYTES #M 0.4 10^3/ul (0.0-0.0); MYELOCYTES % (M) 3 % (0-0); OVALOCYTES 1+ (0-0); PLATELET ESTIMATE NORMAL; POIKILOCYTOSIS 1+ (0-0); SEG NEUT #M 10.8 10^3/ul (1.6-7.5); SEGMENTED NEUTROPHILS (M) % 68 % (39-77); SMUDGE%M 51 % (0-0)
[2018-10-29] MEDS: ACALABRUTINIB 100 MG PO ×2 (08:59→21:01)
[2018-10-29] MEDS: SUCRALFATE (100 MG/ML) 10ML CUP PO ×4 (09:00→21:00)
[2018-10-29] MEDS: DOCUSATE SODIUM 100 MG CAP PO ×2 (09:00→21:00)
[2018-10-29] MEDS: ENOXAPARIN 100 MG/ML SYG SC (09:00)
[2018-10-29 12:56] LABS: INR 1.01; PROTIME 13.4 Sec (11.9-14.9)
[2018-10-29] MEDS: FLUCONAZOLE 100 MG/50 ML (PMX) 50 ML IVPB (14:41)
[2018-10-29] MEDS: FAT EMULSION 20% 250 ML IV (16:04)
[2018-10-29] MEDS: TPN 1,000 ML IV (17:27)
[2018-10-30] MEDS: METOCLOPRAMIDE 10 MG INJ IV ×4 (00:11→17:46)
[2018-10-30] MEDS: DEXAMETHASONE 4 MG/ML 1 ML INJ IV ×4 (00:11→17:46)
[2018-10-30] MEDS: ACCU-CHEK XX ×4 (00:14→17:47)
[2018-10-30] MEDS: HYDROmorphONE 1 MG/ML SYG IV ×4 (03:40→20:10)
[2018-10-30] MEDS: INSULIN ASPART [NOVOLOG] 3 ML PEN SC ×4 (06:00→17:47)
[2018-10-30] MEDS: PANTOPRAZOLE 40 MG INJ IV ×2 (06:13→17:46)
[2018-10-30 07:34] LABS: WHITE BLOOD COUNT 19.1 10^3/ul (4.8-10.8)
[2018-10-30 07:34] LABS: ABNORMAL IP MESSAGE 1; HEMATOCRIT 20.8 % (42.0-52.0); HEMOGLOBIN 7.3 g/dl (14.0-18.0); MEAN CORPUSCULAR HEMOGLOBIN 29.1 pg (29.0-33.0); MEAN CORPUSCULAR HGB CONC 35.1 g/dl (32.0-37.0); MEAN CORPUSCULAR VOLUME 82.9 fl (82.0-101.0); MEAN PLATELET VOLUME 10.1 fl (7.4-10.4); NUCLEATED RED BLOOD CELLS% 0.3 /100WBC (0.0-0.0); PLATELET COUNT 158 10^3/UL (140-415); POSITIVE DIFF @See below; RED BLOOD COUNT 2.51 10^6/ul (4.70-6.10); RED CELL DISTRIBUTION WIDTH 15.1 % (11.5-14.5)
[2018-10-30 07:40] LABS: ADD MAN DIFF? YES
[2018-10-30 07:55] LABS: IRON 65 ug/dl (35-150)
[2018-10-30 08:05] LABS: % IRON SATURATION 32 % SAT (22-52); ANION GAP 5 (5-13); BLOOD UREA NITROGEN 31 mg/dl (7-20); CALCIUM 7.8 mg/dl (8.4-10.2); CARBON DIOXIDE 25 mmol/L (21-31); CHLORIDE 105 mmol/L (97-110); CREATININE 0.64 mg/dl (0.61-1.24); Estimated GFR > 60 mL/min (>60); GLUCOSE 97 mg/dl (70-220); MAGNESIUM 1.7 mg/dl (1.7-2.5); PHOSPHORUS 3.1 mg/dl (2.5-4.9); POTASSIUM 3.8 mmol/L (3.5-5.1); SODIUM 135 mmol/L (135-144); TOTAL IRON BINDING CAPACITY 201 ug/dl (241-421)
[2018-10-30] MEDS: ENOXAPARIN 100 MG/ML SYG SC (09:46)
[2018-10-30] MEDS: DOCUSATE SODIUM 100 MG CAP PO ×2 (09:48→20:14)
[2018-10-30] MEDS: SUCRALFATE (100 MG/ML) 10ML CUP PO ×4 (09:48→20:14)
[2018-10-30] MEDS: ACALABRUTINIB 100 MG PO ×2 (09:49→20:15)
[2018-10-30] MEDS: PROPOFOL 40 ML (09:49)
[2018-10-30] MEDS: LIDOCAINE 2% (SDV) 5 ML INJ (09:50)
[2018-10-30 10:55] LABS: ANISOCYTOSIS 1+ (0-0); BAND NEUTROPHILS #M 3.8 10^3/ul (0.0-0.6); BAND NEUTROPHILS % (M) 20 % (0-4); BASOPHIL #M 0.1 10^3/ul (0.0-0.0); BASOPHILS % (M) 1 % (0-2); BURR CELLS 1+ (0-0); LYMPHOCYTES #M 1.9 10^3/ul (0.8-2.9); LYMPHOCYTES % (M) 10 % (15-51); METAMYELOCYTES #M 0.1 10^3/ul (0.0-0.0); METAMYELOCYTES %M 1 % (0-0); MICROCYTOSIS 1+ (0-0); MONOCYTE #M 0.9 10^3/ul (0.3-0.9); MONOCYTES % (M) 5 % (0-11); MYELOCYTES #M 0.5 10^3/ul (0.0-0.0); MYELOCYTES % (M) 3 % (0-0); OVALOCYTES 1+ (0-0); PLATELET ESTIMATE NORMAL; POIKILOCYTOSIS 2+ (0-0); SEG NEUT #M 9.7 10^3/ul (1.6-7.5); SEGMENTED NEUTROPHILS (M) % 47 % (39-77); SMUDGE%M 17 % (0-0)
[2018-10-30] MEDS: MAGNESIUM SULFATE 2 GM/50 ML 50 ML IVPB (12:52)
[2018-10-30] MEDS: FLUCONAZOLE 100 MG/50 ML (PMX) 50 ML IVPB (15:12)
[2018-10-30] MEDS: TPN 1,000 ML IV (17:46)
[2018-10-31] MEDS: HYDROmorphONE 1 MG/ML SYG IV ×5 (00:06→19:52)
[2018-10-31] MEDS: METOCLOPRAMIDE 10 MG INJ IV ×4 (00:06→17:32)
[2018-10-31] MEDS: DEXAMETHASONE 4 MG/ML 1 ML INJ IV ×4 (00:06→17:33)
[2018-10-31] MEDS: ACCU-CHEK XX ×4 (00:18→17:34)
[2018-10-31] MEDS: INSULIN ASPART [NOVOLOG] 3 ML PEN SC ×4 (05:42→17:32)
[2018-10-31] MEDS: PANTOPRAZOLE 40 MG INJ IV ×2 (05:42→17:32)
[2018-10-31 06:27] LABS: WHITE BLOOD COUNT 16.6 10^3/ul (4.8-10.8)
[2018-10-31 06:27] LABS: ABNORMAL IP MESSAGE 1; MEAN CORPUSCULAR HEMOGLOBIN 28.3 pg (29.0-33.0); MEAN CORPUSCULAR VOLUME 83.3 fl (82.0-101.0); MEAN PLATELET VOLUME 10.8 fl (7.4-10.4); NUCLEATED RED BLOOD CELLS% 0.3 /100WBC (0.0-0.0); PLATELET COUNT 144 10^3/UL (140-415); POSITIVE DIFF @See below; RED CELL DISTRIBUTION WIDTH 15.1 % (11.5-14.5)
[2018-10-31 06:37] LABS: ADD MAN DIFF? YES
[2018-10-31 06:38] LABS: HEMOGLOBIN 6.8 g/dl (14.0-18.0)
[2018-10-31 07:01] LABS: ALBUMIN 2.2 g/dl (3.3-4.9); ANION GAP 5 (5-13); BLOOD UREA NITROGEN 32 mg/dl (7-20); CALCIUM 7.7 mg/dl (8.4-10.2); CARBON DIOXIDE 25 mmol/L (21-31); CHLORIDE 104 mmol/L (97-110); CREATININE 0.68 mg/dl (0.61-1.24); GLUCOSE 107 mg/dl (70-220); MAGNESIUM 2.2 mg/dl (1.7-2.5); PHOSPHORUS 3.9 mg/dl (2.5-4.9); POTASSIUM 3.9 mmol/L (3.5-5.1); SODIUM 134 mmol/L (135-144)
[2018-10-31] MEDS: TPN 1,000 ML IV ×2 (08:40→16:29)
[2018-10-31 08:45] LABS: ABNORMAL IP MESSAGE 1; HEMATOCRIT 21.2 % (42.0-52.0); HEMOGLOBIN 7.2 g/dl (14.0-18.0); MEAN CORPUSCULAR HEMOGLOBIN 28.2 pg (29.0-33.0); MEAN CORPUSCULAR VOLUME 83.1 fl (82.0-101.0); NUCLEATED RED BLOOD CELLS% 0.4 /100WBC (0.0-0.0); PLATELET COUNT 152 10^3/UL (140-415); POSITIVE DIFF @See below; RED BLOOD COUNT 2.55 10^6/ul (4.70-6.10); RED CELL DISTRIBUTION WIDTH 15.1 % (11.5-14.5)
[2018-10-31 08:45] LABS: WHITE BLOOD COUNT 17.7 10^3/ul (4.8-10.8)
[2018-10-31 08:52] LABS: ADD MAN DIFF? YES
[2018-10-31 09:13] LABS: ANISOCYTOSIS 1+ (0-0); BAND NEUTROPHILS #M 1.6 10^3/ul (0.0-0.6); BAND NEUTROPHILS % (M) 10 % (0-4); BURR CELLS 1+ (0-0); ELLIPTO 1+ (0-0); LYMPHOCYTES #M 2.8 10^3/ul (0.8-2.9); LYMPHOCYTES % (M) 17 % (15-51); METAMYELOCYTES #M 0.4 10^3/ul (0.0-0.0); METAMYELOCYTES %M 3 % (0-0); MICROCYTOSIS 1+ (0-0); MONOCYTE #M 0.9 10^3/ul (0.3-0.9); MONOCYTES % (M) 6 % (0-11); MYELOCYTES #M 0.4 10^3/ul (0.0-0.0); MYELOCYTES % (M) 3 % (0-0); OVALOCYTES 1+ (0-0); PLATELET ESTIMATE NORMAL; POIKILOCYTOSIS 3+ (0-0); POLYCHROMASIA 3+ (0-0); PROMYELOCYTES #M 0.1 10^3/ul (0-0); PROMYELOCYTES % (M) 1 % (0-0); SEG NEUT #M 7.1 10^3/ul (1.6-7.5); SEGMENTED NEUTROPHILS (M) % 41 % (39-77); SMUDGE%M 13 % (0-0)
[2018-10-31] MEDS: SUCRALFATE (100 MG/ML) 10ML CUP PO ×4 (09:24→21:26)
[2018-10-31] MEDS: DOCUSATE SODIUM 100 MG CAP PO ×2 (09:25→21:26)
[2018-10-31] MEDS: ACALABRUTINIB 100 MG PO ×2 (09:25→21:28)
[2018-10-31 09:46] LABS: ANISOCYTOSIS 1+ (0-0); BAND NEUTROPHILS #M 1.9 10^3/ul (0.0-0.6); BAND NEUTROPHILS % (M) 11 % (0-4); GIANT THROMBO% (M) 1 % (0-0); LYMPHOCYTES #M 1.5 10^3/ul (0.8-2.9); LYMPHOCYTES % (M) 9 % (15-51); MICROCYTOSIS 1+ (0-0); MONOCYTE #M 0.8 10^3/ul (0.3-0.9); MONOCYTES % (M) 5 % (0-11); MYELOCYTES #M 0.3 10^3/ul (0.0-0.0); MYELOCYTES % (M) 2 % (0-0); OVALOCYTES 1+ (0-0); PLATELET ESTIMATE NORMAL; POIKILOCYTOSIS 3+ (0-0); POLYCHROMASIA 1+ (0-0); PROMYELOCYTES #M 0.3 10^3/ul (0-0); PROMYELOCYTES % (M) 2 % (0-0); SEG NEUT #M 10.8 10^3/ul (1.6-7.5); SEGMENTED NEUTROPHILS (M) % 59 % (39-77); SMUDGE%M 5 % (0-0)
[2018-10-31 12:45] LABS: IMMEDIATE SPIN CROSSMATCH 1 2
[2018-10-31 12:47] LABS: IMMUNOGLOBULIN A 90 mg/dl (70-400); IMMUNOGLOBULIN G 431 mg/dl (700-1600); IMMUNOGLOBULIN M < 25 mg/dl (40-230)
[2018-10-31] MEDS: HYOSCYAMINE 0.125 MG SUBL TAB PO ×2 (15:31→21:26)
[2018-10-31] MEDS: ONDANSETRON 4 MG INJ IV (21:26)
[2018-11-01] MEDS: DEXAMETHASONE 4 MG/ML 1 ML INJ IV ×5 (00:01→23:22)
[2018-11-01] MEDS: METOCLOPRAMIDE 10 MG INJ IV ×5 (00:01→23:24)
[2018-11-01] MEDS: ACCU-CHEK XX ×5 (00:05→23:26)
[2018-11-01] MEDS: HYDROmorphONE 1 MG/ML SYG IV ×7 (04:08→23:29)
[2018-11-01] MEDS: PANTOPRAZOLE 40 MG INJ IV ×2 (05:29→17:28)
[2018-11-01] MEDS: INSULIN ASPART [NOVOLOG] 3 ML PEN SC ×5 (05:29→23:26)
[2018-11-01] MEDS: HYOSCYAMINE 0.125 MG SUBL TAB PO ×3 (05:29→21:13)
[2018-11-01] MEDS: SUCRALFATE (100 MG/ML) 10ML CUP PO ×4 (08:54→21:16)
[2018-11-01] MEDS: DOCUSATE SODIUM 100 MG CAP PO ×2 (08:54→21:13)
[2018-11-01 08:55] LABS: ALBUMIN 2.8 g/dl (3.3-4.9); ANION GAP 6 (5-13); BLOOD UREA NITROGEN 28 mg/dl (7-20); CALCIUM 8.2 mg/dl (8.4-10.2); CARBON DIOXIDE 25 mmol/L (21-31); CHLORIDE 102 mmol/L (97-110); CREATININE 0.66 mg/dl (0.61-1.24); GLUCOSE 114 mg/dl (70-220); MAGNESIUM 2.1 mg/dl (1.7-2.5); PHOSPHORUS 3.7 mg/dl (2.5-4.9); POTASSIUM 4.1 mmol/L (3.5-5.1); SODIUM 133 mmol/L (135-144)
[2018-11-01] MEDS: ACALABRUTINIB 100 MG PO ×2 (08:58→21:16)
[2018-11-01 08:59] LABS: PREALBUMIN 27.8 mg/dl (17.6-36.0)
[2018-11-01 09:23] LABS: WHITE BLOOD COUNT 19.5 10^3/ul (4.8-10.8)
[2018-11-01 09:23] LABS: ABNORMAL IP MESSAGE 1; HEMATOCRIT 27.8 % (42.0-52.0); HEMOGLOBIN 9.8 g/dl (14.0-18.0); MEAN CORPUSCULAR HEMOGLOBIN 28.8 pg (29.0-33.0); MEAN CORPUSCULAR HGB CONC 35.3 g/dl (32.0-37.0); MEAN CORPUSCULAR VOLUME 81.8 fl (82.0-101.0); MEAN PLATELET VOLUME 10.7 fl (7.4-10.4); NUCLEATED RED BLOOD CELLS% 0.5 /100WBC (0.0-0.0); PLATELET COUNT 154 10^3/UL (140-415); POSITIVE DIFF @See below; RED CELL DISTRIBUTION WIDTH 15.2 % (11.5-14.5)
[2018-11-01 09:25] LABS: ADD MAN DIFF? YES
[2018-11-01 10:33] LABS: ANISOCYTOSIS 1+ (0-0); BAND NEUTROPHILS #M 2.1 10^3/ul (0.0-0.6); BAND NEUTROPHILS % (M) 11 % (0-4); ERYTHROBLAST% (NRBC) (M) 1 % (0-0); GIANT THROMBO% (M) 1 % (0-0); LYMPHOCYTES #M 0.7 10^3/ul (0.8-2.9); LYMPHOCYTES % (M) 4 % (15-51); METAMYELOCYTES #M 0.3 10^3/ul (0.0-0.0); METAMYELOCYTES %M 2 % (0-0); MONOCYTE #M 1.1 10^3/ul (0.3-0.9); MONOCYTES % (M) 6 % (0-11); MYELOCYTES #M 0.5 10^3/ul (0.0-0.0); MYELOCYTES % (M) 3 % (0-0); PLATELET ESTIMATE NORMAL; POIKILOCYTOSIS 1+ (0-0); PROMYELOCYTES #M 0.1 10^3/ul (0-0); PROMYELOCYTES % (M) 1 % (0-0); REACTIVE LYMPHOCYTES #M 0.9 10^3/ul (0.0-0.0); REACTIVE LYMPHOCYTES% (M) 5 % (0-0); SEG NEUT #M 9.8 10^3/ul (1.6-7.5); SEGMENTED NEUTROPHILS (M) % 48 % (39-77); SMUDGE%M 15 % (0-0)
[2018-11-01] MEDS: TPN 1,000 ML IV (11:17)
[2018-11-01] MEDS ORDERED: MEPERIDINE 25 MG INJ IV (15:00)
[2018-11-01] MEDS ORDERED: FENTAnyl 50 MCG/ML VIAL IV ×3 (15:00)
[2018-11-01] MEDS ORDERED: hydrALAzine 20 MG INJ IV (15:00)
[2018-11-01] MEDS ORDERED: ONDANSETRON 4 MG INJ IV (15:00)
[2018-11-01] MEDS ORDERED: LABETALOL HCL 20MG INJ IV (15:00)
[2018-11-01] MEDS: FAT EMULSION 20% 250 ML IV (15:40)
[2018-11-01] MEDS ORDERED: HYDROmorphONE 0.5 MG/0.5 ML SYG (18:11)
[2018-11-01] MEDS: HYDROmorphONE 0.5 MG/0.5 ML SYG IV (18:12)
[2018-11-02] MEDS: HYDROmorphONE 1 MG/ML SYG IV ×5 (03:22→21:25)
[2018-11-02] MEDS: METOCLOPRAMIDE 10 MG INJ IV ×3 (06:00→17:35)
[2018-11-02] MEDS: HYOSCYAMINE 0.125 MG SUBL TAB PO ×4 (06:00→21:56)
[2018-11-02] MEDS: PANTOPRAZOLE 40 MG INJ IV ×2 (06:00→17:35)
[2018-11-02] MEDS: DEXAMETHASONE 4 MG/ML 1 ML INJ IV ×3 (06:00→17:35)
[2018-11-02] MEDS: KETOROLAC 15 MG INJ IV (06:00)
[2018-11-02] MEDS: ACCU-CHEK XX ×3 (06:00→17:33)
[2018-11-02] MEDS: INSULIN ASPART [NOVOLOG] 3 ML PEN SC ×3 (06:00→17:32)
[2018-11-02 06:13] LABS: ABNORMAL IP MESSAGE 1; HEMATOCRIT 24.9 % (42.0-52.0); HEMOGLOBIN 8.2 g/dl (14.0-18.0); MEAN CORPUSCULAR HEMOGLOBIN 28.6 pg (29.0-33.0); MEAN CORPUSCULAR HGB CONC 32.9 g/dl (32.0-37.0); MEAN CORPUSCULAR VOLUME 86.8 fl (82.0-101.0); MEAN PLATELET VOLUME 10.8 fl (7.4-10.4); NUCLEATED RED BLOOD CELLS% 0.6 /100WBC (0.0-0.0); PLATELET COUNT 128 10^3/UL (140-415); POSITIVE DIFF @See below; RED BLOOD COUNT 2.87 10^6/ul (4.70-6.10); RED CELL DISTRIBUTION WIDTH 15.9 % (11.5-14.5)
[2018-11-02 06:13] LABS: WHITE BLOOD COUNT 18.3 10^3/ul (4.8-10.8)
[2018-11-02 06:15] LABS: ADD MAN DIFF? YES
[2018-11-02 07:05] LABS: ALBUMIN 2.3 g/dl (3.3-4.9); ANION GAP 5 (5-13); BLOOD UREA NITROGEN 29 mg/dl (7-20); CALCIUM 7.9 mg/dl (8.4-10.2); CARBON DIOXIDE 25 mmol/L (21-31); CHLORIDE 102 mmol/L (97-110); CREATININE 0.66 mg/dl (0.61-1.24); GLUCOSE 121 mg/dl (70-220); MAGNESIUM 2.3 mg/dl (1.7-2.5); PHOSPHORUS 3.9 mg/dl (2.5-4.9); POTASSIUM 4.1 mmol/L (3.5-5.1); SODIUM 132 mmol/L (135-144)
[2018-11-02] MEDS: FENTAnyl 50 MCG/ML VIAL (07:36)
[2018-11-02] MEDS: CEFAZOLIN 1 GM/50 ML (PMX) 50 ML IVPB (07:36)
[2018-11-02] MEDS: PROPOFOL 20 ML (07:36)
[2018-11-02 09:52] LABS: ANISOCYTOSIS 1+ (0-0); BAND NEUTROPHILS #M 1.2 10^3/ul (0.0-0.6); BAND NEUTROPHILS % (M) 7 % (0-4); LYMPHOCYTES #M 1.2 10^3/ul (0.8-2.9); LYMPHOCYTES % (M) 7 % (15-51); METAMYELOCYTES #M 0.1 10^3/ul (0.0-0.0); METAMYELOCYTES %M 1 % (0-0); MONOCYTE #M 1.2 10^3/ul (0.3-0.9); MONOCYTES % (M) 7 % (0-11); MYELOCYTES #M 0.7 10^3/ul (0.0-0.0); MYELOCYTES % (M) 4 % (0-0); OVALOCYTES 1+ (0-0); PLATELET ESTIMATE DECREASED; POIKILOCYTOSIS 1+ (0-0); POLYCHROMASIA 2+ (0-0); RBC MORPHOLOGY COMMENT @See below; SEG NEUT #M 11.2 10^3/ul (1.6-7.5); SEGMENTED NEUTROPHILS (M) % 60 % (39-77); SMUDGE%M 37 % (0-0); WBC MORPHOLOGY COMMENT @See below
[2018-11-02] MEDS: ACALABRUTINIB 100 MG PO ×2 (09:56→21:00)
[2018-11-02] MEDS: DOCUSATE SODIUM 100 MG CAP PO ×2 (09:56→21:11)
[2018-11-02] MEDS: SUCRALFATE (100 MG/ML) 10ML CUP PO ×4 (09:56→21:11)
[2018-11-02] MEDS: TPN 1,000 ML IV (10:04)
[2018-11-02] MEDS ORDERED: ACETAMINOPHEN 325 MG TAB GTB (21:30)
[2018-11-02] MEDS: ONDANSETRON 4 MG INJ IV (21:56)
[2018-11-03] MEDS: METOCLOPRAMIDE 10 MG INJ IV ×5 (00:45→23:28)
[2018-11-03] MEDS: DEXAMETHASONE 4 MG/ML 1 ML INJ IV ×5 (00:45→23:28)
[2018-11-03] MEDS: HYDROmorphONE 1 MG/ML SYG IV ×4 (03:33→23:29)
[2018-11-03 05:42] LABS: WHITE BLOOD COUNT 19.3 10^3/ul (4.8-10.8)
[2018-11-03 05:42] LABS: HEMATOCRIT 20.1 % (42.0-52.0); MEAN CORPUSCULAR HGB CONC 33.3 g/dl (32.0-37.0); PLATELET COUNT 92 10^3/UL (140-415); RED BLOOD COUNT 2.31 10^6/ul (4.70-6.10); RED CELL DISTRIBUTION WIDTH 16.1 % (11.5-14.5)
[2018-11-03 05:43] LABS: ABNORMAL IP MESSAGE 1; MEAN PLATELET VOLUME 11.2 fl (7.4-10.4); NUCLEATED RED BLOOD CELLS% 0.3 /100WBC (0.0-0.0); POSITIVE DIFF @See below
[2018-11-03 05:50] LABS: HEMOGLOBIN 6.7 g/dl (14.0-18.0)
[2018-11-03 05:51] LABS: ADD MAN DIFF? YES
[2018-11-03] MEDS: ACCU-CHEK XX ×5 (06:00→23:28)
[2018-11-03] MEDS: INSULIN ASPART [NOVOLOG] 3 ML PEN SC ×5 (06:00→23:28)
[2018-11-03] MEDS: PANTOPRAZOLE 40 MG INJ IV (06:40)
[2018-11-03] MEDS: HYOSCYAMINE 0.125 MG SUBL TAB PO ×3 (06:41→21:25)
[2018-11-03 07:33] LABS: ANISOCYTOSIS 1+ (0-0); BAND NEUTROPHILS #M 1.5 10^3/ul (0.0-0.6); BAND NEUTROPHILS % (M) 8 % (0-4); EOSINOPHILS % (M) 2 % (0-7); ERYTHROBLAST% (NRBC) (M) 1 % (0-0); GIANT THROMBO% (M) 1 % (0-0); LYMPHOCYTES #M 0.7 10^3/ul (0.8-2.9); LYMPHOCYTES % (M) 4 % (15-51); MICROCYTOSIS 1+ (0-0); MONOCYTE #M 0.7 10^3/ul (0.3-0.9); MONOCYTES % (M) 4 % (0-11); MYELOCYTES #M 0.5 10^3/ul (0.0-0.0); MYELOCYTES % (M) 3 % (0-0); OVALOCYTES 1+ (0-0); PLATELET ESTIMATE DECREASED; POIKILOCYTOSIS 1+ (0-0); POLYCHROMASIA 1+ (0-0); SEG NEUT #M 13.6 10^3/ul (1.6-7.5); SEGMENTED NEUTROPHILS (M) % 69 % (39-77); SMUDGE%M 8 % (0-0)
[2018-11-03] MEDS: SOD CHLORIDE 0.9% 1,000 ML IV (08:55)
[2018-11-03] MEDS: ACALABRUTINIB 100 MG PO ×2 (09:00→21:00)
[2018-11-03] MEDS: DOCUSATE SODIUM 10 MG/ML (10ML CUP) GTB ×2 (09:44→21:25)
[2018-11-03] MEDS: SUCRALFATE (100 MG/ML) 10ML CUP GTB ×4 (09:44→21:25)
[2018-11-03] MEDS: ALBUMIN HUMAN 25% 100 ML IV (10:47)
[2018-11-03 11:57] LABS: HEMATOCRIT 17.5 % (42.0-52.0)
[2018-11-03 12:07] LABS: HEMOGLOBIN 5.7 g/dl (14.0-18.0)
[2018-11-03] MEDS ORDERED: MEROPENEM 500MG/50 ML (PMX) 50 ML IVPB (15:00)
[2018-11-03] MEDS ORDERED: MEROPENEM 1 GM/50ML(PMX) 50 ML IVPB (15:00)
[2018-11-03 15:58] LABS: IMMEDIATE SPIN CROSSMATCH 1 3
[2018-11-03] MEDS: LANSOPRAZOLE 30 MG CAP GTB (17:55)
[2018-11-03] MEDS: MEROPENEM 1 GM/50ML(PMX) 50 ML IVPB (20:11)
[2018-11-04] MEDS: MEROPENEM 1 GM/50ML(PMX) 50 ML IVPB ×2 (04:09→11:46)
[2018-11-04] MEDS: HYDROmorphONE 1 MG/ML SYG IV ×5 (04:09→22:09)
[2018-11-04] MEDS: INSULIN ASPART [NOVOLOG] 3 ML PEN SC ×3 (06:00→17:35)
[2018-11-04] MEDS: ACCU-CHEK XX ×3 (06:00→17:36)
[2018-11-04 06:10] LABS: ABNORMAL IP MESSAGE 1; HEMATOCRIT 21.2 % (42.0-52.0); HEMOGLOBIN 7.2 g/dl (14.0-18.0); MEAN CORPUSCULAR HEMOGLOBIN 29.6 pg (29.0-33.0); MEAN CORPUSCULAR VOLUME 87.2 fl (82.0-101.0); PLATELET COUNT 54 10^3/UL (140-415); POSITIVE DIFF @See below; RED BLOOD COUNT 2.43 10^6/ul (4.70-6.10); RED CELL DISTRIBUTION WIDTH 15.7 % (11.5-14.5)
[2018-11-04 06:10] LABS: WHITE BLOOD COUNT 14.3 10^3/ul (4.8-10.8)
[2018-11-04 06:16] LABS: ADD MAN DIFF? YES
[2018-11-04] MEDS: METOCLOPRAMIDE 10 MG INJ IV ×3 (06:24→17:35)
[2018-11-04] MEDS: HYOSCYAMINE 0.125 MG SUBL TAB PO ×3 (06:24→22:09)
[2018-11-04] MEDS: LANSOPRAZOLE 30 MG CAP GTB ×2 (06:24→17:35)
[2018-11-04] MEDS: DEXAMETHASONE 4 MG/ML 1 ML INJ IV ×3 (06:24→17:35)
[2018-11-04 06:56] LABS: ANION GAP 11 (5-13); BLOOD UREA NITROGEN 32 mg/dl (7-20); CALCIUM 6.1 mg/dl (8.4-10.2); CARBON DIOXIDE 24 mmol/L (21-31); CHLORIDE 113 mmol/L (97-110); CREATININE 0.53 mg/dl (0.61-1.24); Estimated GFR > 60 mL/min (>60); GLUCOSE 59 mg/dl (70-220); MAGNESIUM 1.8 mg/dl (1.7-2.5); PHOSPHORUS 2.9 mg/dl (2.5-4.9); POTASSIUM 3.2 mmol/L (3.5-5.1); SODIUM 148 mmol/L (135-144)
[2018-11-04 08:26] LABS: ANISOCYTOSIS 1+ (0-0); BAND NEUTROPHILS #M 0.8 10^3/ul (0.0-0.6); BAND NEUTROPHILS % (M) 6 % (0-4); BASOPHIL #M 0.1 10^3/ul (0.0-0.0); BASOPHILS % (M) 1 % (0-2); BURR CELLS 1+ (0-0); LYMPHOCYTES #M 1.2 10^3/ul (0.8-2.9); LYMPHOCYTES % (M) 9 % (15-51); METAMYELOCYTES #M 0.1 10^3/ul (0.0-0.0); METAMYELOCYTES %M 1 % (0-0); MICROCYTOSIS 1+ (0-0); MONOCYTE #M 0.5 10^3/ul (0.3-0.9); MONOCYTES % (M) 4 % (0-11); MYELOCYTES #M 0.1 10^3/ul (0.0-0.0); MYELOCYTES % (M) 1 % (0-0); PLATELET ESTIMATE DECREASED; POIKILOCYTOSIS 1+ (0-0); POLYCHROMASIA 1+ (0-0); SEG NEUT #M 10.7 10^3/ul (1.6-7.5); SEGMENTED NEUTROPHILS (M) % 74 % (39-77); SMUDGE%M 7 % (0-0)
[2018-11-04] MEDS: SUCRALFATE (100 MG/ML) 10ML CUP GTB ×4 (09:45→21:15)
[2018-11-04] MEDS: DOCUSATE SODIUM 10 MG/ML (10ML CUP) GTB ×2 (09:45→21:13)
[2018-11-04] MEDS: ACALABRUTINIB 100 MG PO ×2 (14:18→22:11)
[2018-11-04] MEDS: PIPER-TAZO 3.375 GM IV (PMX) 100 ML IVPB ×2 (14:19→22:10)
[2018-11-05] MEDS: ACCU-CHEK XX ×4 (00:38→18:32)
[2018-11-05] MEDS: DEXAMETHASONE 4 MG/ML 1 ML INJ IV ×5 (00:43→23:39)
[2018-11-05] MEDS: METOCLOPRAMIDE 10 MG INJ IV ×5 (00:43→23:36)
[2018-11-05] MEDS: HYDROmorphONE 1 MG/ML SYG IV ×5 (03:04→23:36)
[2018-11-05] MEDS: INSULIN ASPART [NOVOLOG] 3 ML PEN SC ×4 (06:00→18:00)
[2018-11-05] MEDS: HYOSCYAMINE 0.125 MG SUBL TAB PO ×3 (06:15→22:54)
[2018-11-05] MEDS: PIPER-TAZO 3.375 GM IV (PMX) 100 ML IVPB ×3 (06:15→22:54)
[2018-11-05] MEDS: LANSOPRAZOLE 30 MG CAP GTB ×2 (06:15→18:49)
[2018-11-05 07:33] LABS: ABNORMAL IP MESSAGE 1; HEMATOCRIT 26.8 % (42.0-52.0); HEMOGLOBIN 8.7 g/dl (14.0-18.0); MEAN CORPUSCULAR HEMOGLOBIN 28.8 pg (29.0-33.0); MEAN CORPUSCULAR HGB CONC 32.5 g/dl (32.0-37.0); MEAN CORPUSCULAR VOLUME 88.7 fl (82.0-101.0); MEAN PLATELET VOLUME 12.3 fl (7.4-10.4); NUCLEATED RED BLOOD CELLS% 0.2 /100WBC (0.0-0.0); PLATELET COUNT 56 10^3/UL (140-415); POSITIVE DIFF @See below; RED BLOOD COUNT 3.02 10^6/ul (4.70-6.10); RED CELL DISTRIBUTION WIDTH 16.4 % (11.5-14.5)
[2018-11-05 07:33] LABS: WHITE BLOOD COUNT 15.4 10^3/ul (4.8-10.8)
[2018-11-05 07:38] LABS: ADD MAN DIFF? YES
[2018-11-05 07:57] LABS: ANION GAP 8 (5-13); BLOOD UREA NITROGEN 37 mg/dl (7-20); CALCIUM 7.6 mg/dl (8.4-10.2); CARBON DIOXIDE 24 mmol/L (21-31); CHLORIDE 107 mmol/L (97-110); CREATININE 0.89 mg/dl (0.61-1.24); Estimated GFR > 60 mL/min (>60); GLUCOSE 116 mg/dl (70-220); POTASSIUM 3.7 mmol/L (3.5-5.1); SODIUM 139 mmol/L (135-144)
[2018-11-05] MEDS: SUCRALFATE (100 MG/ML) 10ML CUP GTB ×4 (08:23→20:31)
[2018-11-05] MEDS: DOCUSATE SODIUM 10 MG/ML (10ML CUP) GTB ×2 (08:23→20:32)
[2018-11-05] MEDS: HYDROCODONE/APAP (5/325) TAB GTB (08:23)
[2018-11-05] MEDS: ACALABRUTINIB 100 MG PO ×2 (08:25→20:33)
[2018-11-05 09:30] LABS: ANISOCYTOSIS 1+ (0-0); BAND NEUTROPHILS #M 2.4 10^3/ul (0.0-0.6); BAND NEUTROPHILS % (M) 16 % (0-4); ERYTHROBLAST% (NRBC) (M) 1 % (0-0); LYMPHOCYTES #M 1.3 10^3/ul (0.8-2.9); LYMPHOCYTES % (M) 9 % (15-51); METAMYELOCYTES #M 0.1 10^3/ul (0.0-0.0); METAMYELOCYTES %M 1 % (0-0); MICROCYTOSIS 1+ (0-0); MONOCYTE #M 0.1 10^3/ul (0.3-0.9); MONOCYTES % (M) 1 % (0-11); OVALOCYTES 1+ (0-0); PLATELET ESTIMATE SIG DECREASED; POIKILOCYTOSIS 2+ (0-0); SEG NEUT #M 9.6 10^3/ul (1.6-7.5); SEGMENTED NEUTROPHILS (M) % 60 % (39-77); SMUDGE%M 1 % (0-0)
[2018-11-05] MEDS: POTASSIUM CHLORIDE 10 MEQ in DEXTROSE 5%-0.9% NACL 1,000 ML IV ×2 (10:09→23:35)
[2018-11-05] MEDS: BISACODYL 10 MG SUPP PR (16:45)
[2018-11-06] MEDS: ACCU-CHEK XX ×5 (00:10→23:39)
[2018-11-06] MEDS: HYDROmorphONE 1 MG/ML SYG IV ×6 (04:45→21:37)
[2018-11-06 05:09] LABS: WHITE BLOOD COUNT 15.2 10^3/ul (4.8-10.8)
[2018-11-06 05:09] LABS: ABNORMAL IP MESSAGE 1; HEMATOCRIT 25.3 % (42.0-52.0); HEMOGLOBIN 8.4 g/dl (14.0-18.0); MEAN CORPUSCULAR HEMOGLOBIN 29.6 pg (29.0-33.0); MEAN CORPUSCULAR HGB CONC 33.2 g/dl (32.0-37.0); MEAN CORPUSCULAR VOLUME 89.1 fl (82.0-101.0); MEAN PLATELET VOLUME 11.4 fl (7.4-10.4); NUCLEATED RED BLOOD CELLS% 0.1 /100WBC (0.0-0.0); PLATELET COUNT 50 10^3/UL (140-415); POSITIVE DIFF @See below; RED BLOOD COUNT 2.84 10^6/ul (4.70-6.10); RED CELL DISTRIBUTION WIDTH 16.4 % (11.5-14.5)
[2018-11-06 05:24] LABS: ADD MAN DIFF? YES
[2018-11-06 05:33] LABS: ANION GAP 4 (5-13); BLOOD UREA NITROGEN 36 mg/dl (7-20); CARBON DIOXIDE 25 mmol/L (21-31); CHLORIDE 106 mmol/L (97-110); CREATININE 0.89 mg/dl (0.61-1.24); Estimated GFR > 60 mL/min (>60); GLUCOSE 113 mg/dl (70-220); POTASSIUM 4.3 mmol/L (3.5-5.1); SODIUM 135 mmol/L (135-144)
[2018-11-06] MEDS: INSULIN ASPART [NOVOLOG] 3 ML PEN SC ×5 (06:00→23:40)
[2018-11-06] MEDS: PIPER-TAZO 3.375 GM IV (PMX) 100 ML IVPB ×3 (06:08→22:46)
[2018-11-06] MEDS: DEXAMETHASONE 4 MG/ML 1 ML INJ IV ×4 (06:09→23:06)
[2018-11-06] MEDS: LANSOPRAZOLE 30 MG CAP GTB ×2 (06:09→17:46)
[2018-11-06] MEDS: HYOSCYAMINE 0.125 MG SUBL TAB PO ×3 (06:09→22:47)
[2018-11-06] MEDS: METOCLOPRAMIDE 10 MG INJ IV ×4 (06:10→23:06)
[2018-11-06] MEDS: SUCRALFATE (100 MG/ML) 10ML CUP GTB ×4 (09:34→22:48)
[2018-11-06] MEDS: DOCUSATE SODIUM 10 MG/ML (10ML CUP) GTB ×2 (09:34→22:48)
[2018-11-06] MEDS: ACALABRUTINIB 100 MG PO ×2 (09:38→21:00)
[2018-11-06 11:37] LABS: ANISOCYTOSIS 1+ (0-0); BAND NEUTROPHILS #M 2.2 10^3/ul (0.0-0.6); BAND NEUTROPHILS % (M) 15 % (0-4); BURR CELLS 1+ (0-0); EOSINOPHILS % (M) 1 % (0-7); LYMPHOCYTES #M 0.6 10^3/ul (0.8-2.9); LYMPHOCYTES % (M) 4 % (15-51); MICROCYTOSIS 1+ (0-0); MONOCYTE #M 0.9 10^3/ul (0.3-0.9); MONOCYTES % (M) 6 % (0-11); OVALOCYTES 1+ (0-0); PLATELET ESTIMATE DECREASED; POIKILOCYTOSIS 1+ (0-0); POLYCHROMASIA 1+ (0-0); REACTIVE LYMPHOCYTES #M 0.1 10^3/ul (0.0-0.0); REACTIVE LYMPHOCYTES% (M) 1 % (0-0); SEG NEUT #M 10.2 10^3/ul (1.6-7.5); SEGMENTED NEUTROPHILS (M) % 65 % (39-77); SMUDGE%M 9 % (0-0)
[2018-11-06] MEDS: POTASSIUM CHLORIDE 10 MEQ in DEXTROSE 5%-0.9% NACL 1,000 ML IV (14:06)
[2018-11-06] MEDS: HYDROCODONE/APAP (5/325) TAB GTB (15:09)
[2018-11-06 18:19] LABS: ABNORMAL IP MESSAGE 1; HEMATOCRIT 26.3 % (42.0-52.0); HEMOGLOBIN 8.5 g/dl (14.0-18.0); MEAN CORPUSCULAR HGB CONC 32.3 g/dl (32.0-37.0); MEAN CORPUSCULAR VOLUME 89.8 fl (82.0-101.0); MEAN PLATELET VOLUME 12.5 fl (7.4-10.4); NUCLEATED RED BLOOD CELLS% 0.1 /100WBC (0.0-0.0); PLATELET COUNT 48 10^3/UL (140-415); POSITIVE DIFF @See below; RED BLOOD COUNT 2.93 10^6/ul (4.70-6.10); RED CELL DISTRIBUTION WIDTH 16.7 % (11.5-14.5)
[2018-11-06 18:19] LABS: WHITE BLOOD COUNT 14.9 10^3/ul (4.8-10.8)
[2018-11-06 18:25] LABS: ADD MAN DIFF? YES
[2018-11-06 19:50] LABS: ANISOCYTOSIS 1+ (0-0); BAND NEUTROPHILS #M 0.5 10^3/ul (0.0-0.6); BAND NEUTROPHILS % (M) 4 % (0-4); BLAST% (M) 10.1 % (0-0); LYMPHOCYTES #M 0.8 10^3/ul (0.8-2.9); LYMPHOCYTES % (M) 6 % (15-51); MICROCYTOSIS 1+ (0-0); MONOCYTE #M 0.2 10^3/ul (0.3-0.9); MONOCYTES % (M) 2 % (0-11); POIKILOCYTOSIS 2+ (0-0); SEG NEUT #M 11.7 10^3/ul (1.6-7.5); SEGMENTED NEUTROPHILS (M) % 78 % (39-77); SMUDGE%M 60 % (0-0)
[2018-11-07] MEDS: POTASSIUM CHLORIDE 10 MEQ in DEXTROSE 5%-0.9% NACL 1,000 ML IV ×2 (01:42→06:05)
[2018-11-07] MEDS: HYDROmorphONE 1 MG/ML SYG IV ×5 (01:52→15:35)
[2018-11-07 05:48] LABS: ANION GAP 4 (5-13); BLOOD UREA NITROGEN 31 mg/dl (7-20); CALCIUM 8.1 mg/dl (8.4-10.2); CARBON DIOXIDE 25 mmol/L (21-31); CHLORIDE 106 mmol/L (97-110); CREATININE 0.81 mg/dl (0.61-1.24); Estimated GFR > 60 mL/min (>60); GLUCOSE 98 mg/dl (70-220); POTASSIUM 4.5 mmol/L (3.5-5.1); SODIUM 135 mmol/L (135-144)
[2018-11-07] MEDS: ACCU-CHEK XX ×2 (06:00→12:35)
[2018-11-07] MEDS: INSULIN ASPART [NOVOLOG] 3 ML PEN SC ×2 (06:00→12:00)
[2018-11-07] MEDS: PIPER-TAZO 3.375 GM IV (PMX) 100 ML IVPB ×2 (06:07→14:30)
[2018-11-07] MEDS: METOCLOPRAMIDE 10 MG INJ IV ×2 (06:10→12:30)
[2018-11-07] MEDS: HYOSCYAMINE 0.125 MG SUBL TAB PO ×2 (06:10→14:00)
[2018-11-07] MEDS: DEXAMETHASONE 4 MG/ML 1 ML INJ IV ×2 (06:10→12:31)
[2018-11-07] MEDS: LANSOPRAZOLE 30 MG CAP GTB (06:11)
[2018-11-07] MEDS: ACALABRUTINIB 100 MG PO (09:00)
[2018-11-07] MEDS: SUCRALFATE (100 MG/ML) 10ML CUP GTB ×2 (09:15→12:35)
[2018-11-07] MEDS: DOCUSATE SODIUM 10 MG/ML (10ML CUP) GTB (09:15)
[2018-11-07] MEDS ORDERED: FENTAnyl PATCH 50 MCG/HR TRANSDERM ×2 (14:00)
[2018-11-07] MEDS: HEPARIN (100 UNITS/ML) 5 ML SYG CATHETER (15:52)
== END 2018-11-07 16:05 | disposition hospice, home (50) | DRG 840 ==
LOC: MS1 11-05 17:17 → E/R 04:59 → PP2 10:42
PROC: 0DB58ZX Excision of Esophagus, Via Natural or Artificial Opening Endoscopic, Diagnostic (ICD-10-PCS; principal; 2018-10-26 09:20)
PROC: 0DB68ZX Excision of Stomach, Via Natural or Artificial Opening Endoscopic, Diagnostic (ICD-10-PCS; 2018-10-26 09:20)
PROC: 30233N1 Transfusion of Nonautologous Red Blood Cells into Peripheral Vein, Percutaneous Approach (ICD-10-PCS; 2018-10-26 09:20)
PROC: 0DH63UZ Insertion of Feeding Device into Stomach, Percutaneous Approach (ICD-10-PCS; 2018-10-26 09:20)
PROC: 0T9B70Z Drainage of Bladder with Drainage Device, Via Natural or Artificial Opening (ICD-10-PCS; 2018-10-26 09:20)
DX: C83.10 Mantle cell lymphoma, unspecified site (principal); J69.0 Pneumonitis due to inhalation of food and vomit; E43 Unspecified severe protein-calorie malnutrition; N17.0 Acute kidney failure with tubular necrosis; E87.1 Hypo-osmolality and hyponatremia; N39.0 Urinary tract infection, site not specified; B37.81 Candidal esophagitis; N13.1 Hydronephrosis with ureteral stricture, not elsewhere classified; D72.829 Elevated white blood cell count, unspecified; D64.9 Anemia, unspecified; D69.6 Thrombocytopenia, unspecified; D63.0 Anemia in neoplastic disease; F32.9 Major depressive disorder, single episode, unspecified; K29.50 Unspecified chronic gastritis without bleeding; R11.0 Nausea; R19.7 Diarrhea, unspecified; R63.3 Feeding difficulties; R63.0 Anorexia; R33.9 Retention of urine, unspecified; R60.0 Localized edema; R13.10 Dysphagia, unspecified; Z68.22 Body mass index [BMI] 22.0-22.9, adult; Z86.718 Personal history of other venous thrombosis and embolism; Z86.711 Personal history of pulmonary embolism; Z79.01 Long term (current) use of anticoagulants; Z79.52 Long term (current) use of systemic steroids; Z79.899 Other long term (current) drug therapy
CPT/HCPCS: 36415; 36430; 71045; 71250; 74176; 76705; 76775; 80048; 80053; 80061; 80069; 80076; 81001; 81003; 82043; 82728; 82784; 82962; 83036; 83540; 83615; 83690; 83735; 84100; 84134; 84155; 84300; 84443; 84478; 84484; 84560; 85014; 85018; 85025; 85384; 85610; 86320; 86850; 86900; 86901; 86920; 87040-91; 87086; 88305; 88312; 92610; 93005; 93970; 93976; 96374; 96375; 97164; 97530; 99285-25; G0378